=== PATIENT | female | born 1995 | race Caucasian/White ===

== ENCOUNTER 2018-11-09 10:34 | Emergency (ER) | payer MEDICAID, OTHER ==
[2018-11-09 10:53] VITALS: BP 119/78; PULSE 85; RESP 16; TEMP 98.3; O2SAT 98
[2018-11-09 10:54] VITALS: BMI 16.8
--- NOTE | 2018-11-09 12:14 | ED PDOC ---
HPI: Female Pain Time Seen by Provider: 11/09/18 11:15 Chief Complaint (Nursing): Female Genitourinary History Per: Patient History/Exam Limitations: no limitations Onset/Duration Of Symptoms: Days Current Symptoms Are (Timing): Still Present Quality Of Discomfort: Burning, Pressure Associated Symptoms: Urinary Symptoms. denies: Fever, Chills, Vomiting, Back Pain Additional Complaint(s): Pt. is a healthy 23 y/o Female with history of UTIs in past, reports 2 d. history of urinary symptoms including burning with urination, increased freq uency and urgency. Pt. denies n/v, fevers, vag discharge. Past Medical History Vital Signs: Last Vital Signs Temp 98.3 F 11/09/18 10:53 Pulse 85 11/09/18 10:53 Resp 16 11/09/18 10:53 BP 119/78 11/09/18 10:53 Pulse Ox 98 11/09/18 10:53 Primary Care Provider: FAMILY PROVIDER,NO - Medical History PMH: No Chronic Diseases - Family History Family History: States: Unknown Family Hx - Home Medications Home Medications: Ambulatory Orders Medication Instructions Recorded Nitrofurantoin Macrocrystals 100 mg PO BID #10 cap 05/02/15 [Macrobid] Cephalexin [Keflex] 500 mg PO TID #21 capsule 11/09/18 Phenazopyridine HCl [Pyridium] 100 mg PO BID #6 tablet 11/09/18 - Allergies Allergies/Adverse Reactions: Allergies Allergy/AdvReac Type Severity Reaction Status Date / Time No Known Allergies Allergy Verified 05/02/15 12:23 Review of Systems Constitutional: Negative for: Fever, Chills Gastrointestinal: Negative for: Vomiting, Abdominal Pain Genitourinary Female: Positive for: Dysuria, Frequency. Negative for: Vaginal Discharge, Vaginal Bleeding, Pelvic Pain Physical Exam - Physical Exam Appears: Positive for: Well, Non-toxic Head Exam: Positive for: ATRAUMATIC Skin: Positive for: Normal Color, Warm, Dry Cardiovascular/Chest: Positive for: Regular Rate, Rhythm Respiratory: Positive for: Normal Breath Sounds Gastrointestinal/Abdominal: Positive for: Soft, Tenderness (Mild suprapubic tenderness). Negative for: Mass, Distended Back: Positive for: Normal Inspection. Negative for: L CVA Tenderness, R CVA Tenderness Neurological/Psych: Positive for: Awake, Alert, Normal Tone - ECG O2 Sat by Pulse Oximetry: 98 Medical Decision Making Medical Decision Making: U. preg Urinalysis Urine cx Pt. well appearing, (+) urine dip. Discussed results with pt, abd. is soft/nt, no complaint. Rx: keflex, pyridium. stressed importance of close f/u, with pmd and advised urol eval for frequent utis. Disposition - Clinical Impression Clinical Impression: Urinary tract infection - Patient ED Disposition Is Patient to be Admitted: No Counseled Patient/Family Regarding: Studies Performed, Diagnosis, Need For Followup, Rx Given - Disposition Referrals: FAMILY PROVIDER,NO [Primary Care Provider] - Jass Saleem Jr., MD [Staff Provider] - Disposition: Routine/Home Disposition Time: 14:05 Condition: STABLE Prescriptions: Cephalexin [Keflex] 500 mg PO TID #21 capsule Phenazopyridine HCl [Pyridium] 100 mg PO BID #6 tablet Instructions: Urinary Tract Infection, Adult (DC) Forms: [facility] (Malaysian)
[2018-11-09 13:25] LABS: SQUAMOUS EPITHIAL < 1 /hpf (0-5); URINE BILIRUBIN NEGATIVE (NEGATIVE); URINE BLOOD MODERATE (NEGATIVE); URINE CLARITY CLEAR (Clear); URINE COLOR YELLOW (YELLOW); URINE GLUCOSE (UA) NEG (NEGATIVE); URINE LEUKOCYTE ESTERASE LARGE Leu/uL (Negative); URINE PROTEIN NEGATIVE (NEGATIVE); URINE UROBILINOGEN 0.2-1.0 mg/dL (0.2-1.0)
[2018-11-09 13:26] LABS: URINE BACTERIA MOD (<OCC)
== END 2018-11-09 15:43 | disposition home or self-care (01) ==
LOC: SUPCPDRO 10:34 → H.ER 10:34
DX: N39.0 Urinary tract infection, site not specified (principal)